=== PATIENT | male | born 1985 | race African-American/Black ===

== ENCOUNTER 2020-03-22 22:03 | Emergency (ER) | payer MEDICAID, MEDICARE ==
[~2020-03-22] VITALS: Ht 198.1 cm; Wt 130.0 kg
[2020-03-22] MEDS ORDERED: AMOXICILLIN/POTASSIUM CLAVULANATE 875/125MG TAB PO ONE (22:30)
[2020-03-22] MEDS ORDERED: ACETAMINOPHEN WITH CODEINE 300/30MG TABLET PO ONE (22:30)
[2020-03-22 22:50] VITALS: BP 115/70
== END 2020-03-22 22:51 | disposition home or self-care (01) ==
LOC: ER 22:03
DX: S09.8XXA Other specified injuries of head, initial encounter (principal); X58.XXXA Exposure to other specified factors, initial encounter; K08.89 Other specified disorders of teeth and supporting structures; Y93.89 Activity, other specified; Y92.89 Other specified places as the place of occurrence of the external cause; Y99.8 Other external cause status
CPT/HCPCS: 99283

== ENCOUNTER 2024-05-28 05:20 | Emergency (ER) | payer MEDICARE ==
[~2024-05-28] VITALS: Ht 193 cm; Wt 102.0 kg
[2024-05-28 05:24] VITALS: BP 148/102; PULSE 117; RESP 18; TEMP 98.6; O2SAT 99
== END 2024-05-28 06:49 | disposition left against medical advice (07) ==
LOC: ER 05:20
DX: M25.532 Pain in left wrist (principal); Z53.21 Procedure and treatment not carried out due to patient leaving prior to being seen by health care provider
CPT/HCPCS: 73110